=== PATIENT | male | born 1945 | race Native Hawaiian/Other Pacific Islander ===

== ENCOUNTER 2016-03-29 04:37 | Emergency (ER) | payer MEDICARE, BC ==
[~2016-03-29] VITALS: Ht 167.6 cm; Wt 97.0 kg
[2016-03-29 04:40] VITALS: PULSE 84; RESP 18; TEMP 98.4; O2SAT 95
[2016-03-29] MEDS ORDERED: ROSU10 PO (04:51)
[2016-03-29] MEDS ORDERED: ORAC40CA PO (04:51)
[2016-03-29] MEDS ORDERED: ASPI81TA81 PO (04:51)
[2016-03-29] MEDS ORDERED: LISI10TA PO (04:51)
[2016-03-29] MEDS ORDERED: CITA20TA4 PO (04:51)
--- NOTE | 2016-03-29 04:54 | PD ---
HPI . Left hip pain Chief Complaint: Hip Injury Time Seen by Provider: 04:47 Travel History International Travel<30 days: No Contact w/Intl Traveler<30days: No Traveled to known affect area: No History of Present Illness HPI Patient presents to us via [facility] with the chief complaint of left hip pain. He reports a fall couple weeks ago with an injury to the left hip. EMS reported that he was seen here for same and had negative x-rays. However, he has not been seen here recently. Nonetheless, the patient was doing pretty well until tonight when he developed increased pain in the left buttock area that radiates to the left posterior thigh to about the level of the knee. No bowel or bladder incontinence. No fever. PFSH Past Medical History High Cholesterol: Yes Hypertension: Yes Past Surgical History Appendectomy: Yes Other Surgery: Yes (princess foot surgery spurs) Social History Alcohol Use: Yes (occassionally) Tobacco Use: No Substance Use: No Allergies-Medications (Allergen,Severity, Reaction): Coded Allergies: Compazine (Verified Allergy, Unknown, Anaphylaxis, 03/29/16) Uncoded Allergies: advicor (Allergy, Severe, Rash, 03/29/16) Reported Meds & Prescriptions Reported Meds & Active Scripts Active Reported Oracea (Doxycycline) 40 Mg Cap 40 Mg PO DAILY Lisinopril-Hctz 10-12.5 Mg Tab 1 Tab PO DAILY Aspir-81 (Aspirin) 81 Mg Tabdr 81 Mg PO DAILY Citalopram (Citalopram Hydrobromide) 20 Mg Tab 20 Mg PO DAILY Crestor (Rosuvastatin Calcium) 10 Mg Tab 10 Mg PO DAILY Review of Systems Except as stated in HPI: all other systems reviewed are Neg General / Constitutional: No: Fever, Chills Musculoskeletal: Positive: Myalgias Neurologic: No: Weakness, Paresthesia, Incontinence Physical Exam Narrative GENERAL: Patient is awake and alert and in no acute distress. SKIN: Warm and dry. HEAD: Atraumatic. Normocephalic. EYES: Pupils equal and round. ENT: No nasal bleeding or discharge. Mucous membranes pink and moist. NECK: Trachea midline. Neck supple. CARDIOVASCULAR: Regular rate and rhythm. RESPIRATORY: No accessory muscle use. MUSCULOSKELETAL: No obvious deformities. No edema. He has full active range of motion of the left hip. No tenderness to palpation of the left groin or over the left greater trochanter. Log rolling of the leg does not appear to cause pain. Straight leg raise is negative. He has full and equal distal pulses. NEUROLOGICAL: Awake and alert. No obvious cranial nerve deficits. Motor grossly within normal limits. Normal speech. PSYCHIATRIC: Appropriate mood and affect; insight and judgment normal. Data Data Last Documented VS Vital Signs Date Time Temp Pulse Resp B/P Pulse Ox O2 Delivery O2 Flow Rate FiO2 03/29/16 04:44 95 Room Air 03/29/16 04:40 98.4 84 18 Orders Hip, Uni(Ap&Lat) Wo Ap Pelvis (03/29/16 04:48) Morphine Inj (Morphine Inj) (03/29/16 05:15) Morphine Inj (Morphine Inj) (03/29/16 05:30) MDM Medical Decision Making Medical Screen Exam Complete: Yes Emergency Medical Condition: Yes Medical Record Reviewed: Yes (the patient has not been seen here in the recent past for a hip injury.) Differential Diagnosis Differential diagnosis of joint pain includes but is not limited to arthritis, gout, sprain/strain, fracture, dislocation, sciatica Narrative Course Patient presents complaining with acute pain in the left buttock down the left leg to about the knee. He reports a fall 2 weeks ago. He had been doing well since the fall until tonight. The nurse has learned that the patient was actually at an outside hospital 2 days ago for same. He reportedly had a CT scan done. We are attempting to obtain those records. I have obtained his plain films here and his CT report from the outside facility. The plain films here are negative for acute fracture or dislocation. The CT the outside facility shows arthritic changes at both SI joints and the left hip joint. Diagnosis Primary Impression: Left hip pain Patient Instructions: Arthritis (ED), General Instructions Scripts Tramadol (Ultram)50 Mg Tab50 Mg PO Q4H PRN (PAIN) #12 TAB Ref 0 Prov:Aline Martinez MD 03/29/16 Prednisone (48) 10 mg tab Dose Pack 10 Mg Dspk10 Mg PO DIRECTED #1 DSPK Ref 0 Prov:Aline Martinez MD 03/29/16 Disposition: DISCHARGE HOME Condition: Stable Aline Martinez MD Mar 29, 2016 04:54
[2016-03-29] MEDS ORDERED: MORPHINE SULFATE 4 MG/ML INJ SQ ONE (05:15)
[2016-03-29] MEDS ORDERED: MORPHINE SULFATE 8 MG/ML INJ IV PUSH ONE (05:30)
--- NOTE | 2016-03-29 06:03 | RADRPT ---
EXAM DATE/TIME: 03/29/2016 05:10 [facility] COMPARISON: No previous studies available for comparison. INDICATIONS : Left hip pain from a fall. MEDICAL HISTORY : None. SURGICAL HISTORY : None. ENCOUNTER: Initial ACUITY: 1 day PAIN SCORE: 6/10 LOCATION: Left hip FINDINGS: A two view examination of the left hip was performed. The primary and secondary trabecular pattern o f the femoral neck is intact. The hip joint is of normal width without significant sclerosis or bony hypertrophy. The acetabulum is grossly intact. CONCLUSION: 1. There is no evidence of acute fracture. Francis Fonseca MD on March 29, 2016 at 6:01 Board Certified Radiologist. This report was verified electronically.
[2016-03-29] MEDS ORDERED: ULTR50TA5 PO (06:10)
[2016-03-29] MEDS ORDERED: PRED10PA2 PO (06:10)
[2016-03-29 06:11] VITALS: BP 115/67; PULSE 53; RESP 18; O2SAT 94
[2016-03-29 06:19] VITALS: RESP 18
== END 2016-03-29 06:45 | disposition home or self-care (01) ==
LOC: NEPC 04:37
DX: M25.552 Pain in left hip (principal); E78.00 Pure hypercholesterolemia, unspecified; I10 Essential (primary) hypertension; W19.XXXA Unspecified fall, initial encounter; Y99.8 Other external cause status
CPT/HCPCS: 73502; 96374; 99283; J2270